=== PATIENT | female | born 1975 | race Caucasian/White ===

== ENCOUNTER 2019-02-07 16:30 | Inpatient (IN) | payer BC ==
--- NOTE | 2019-03-09 12:21 | HP ---
PROPOSED DATE OF SERVICE: She is scheduled for surgery on March 13. HISTORY OF PRESENT ILLNESS: The patient is a 44-year-old white female, G2, P2, who has been experiencing increasing pelvic prolapse symptoms. She is feeling vaginal bulging, especially aggravated by prolonged standing. She also reports having to splint the vagina at times to help remove her bowel movement with evacuation. She also has loss of urine with coughing, sneezing. She wears a pad daily due to the stress incontinent symptoms. She denies any significant urgency or frequency issues. She also has been reporting heavy bleeding with her menstrual cycles, where she will go through a Maxi Pad in 1 to 2 hours on her heavy days. PAST MEDICAL HISTORY: Only for ADD and depression. PAST SURGICAL HISTORY: Previous laser surgery on her cervix and wisdom teeth extraction. CURRENT MEDICATIONS: 1. Trintellix 20 mg tablet daily. 2. Vyvanse 30 mg tablet daily. 3. Zolpidem extended release 6.25 mg at bedtime p.r.n. insomnia. ALLERGIES: SHE HAS ALLERGY TO BENADRYL. FAMILY HISTORY: Her sister has adenocarcinoma of cervix at age 38. Mother has hyperlipidemia and heart disease. Father with type 2 diabetes. OB HISTORY: She has had 2 vaginal deliveries. Largest baby 8 pounds and 12 ounces. PHYSICAL EXAMINATION: VITAL SIGNS: Her height is 5 feet and 2 inches, weight 181, and BMI 35.3. Blood pressure 110/72, pulse 84, respirations 18, and O2 saturation on room air was 99%. HEENT: Within normal limits. CHEST: Clear to auscultation. HEART: Regular rate and rhythm. S1 and S2 heart sounds. No murmurs, rubs, or gallops. ABDOMEN: Soft, nontender, nondistended with no palpable masses. PELVIC: Vulva and vagina had no lesions. She has a cystocele and rectocele grade 2 on each with hypermobile urethra, greater than 40 degrees noted with Valsalva and loss of urine with Valsalva. Cervix had no lesions. Recent Pap smear was negative for abnormal cells and negative for HPV. Uterus is enlarged, 8 weeks' size with possible pedunculated fibroid noted on the right side. There were no other adnexal masses or tenderness appreciated. DIAGNOSTIC DATA: Transvaginal ultrasound was performed at the visit on January 18 due to the pelvic exam findings. The uterus measured 9.2 x 5.35 x 9.2 cm. There were evidence of a 3 x 3 cm posterior fibroid and 3 x 2.5 cm anterior fibroid and a right-sided 6 x 3.3 cm pedunculated fibroid noted. ASSESSMENT: This is a 44-year-old white female, G2, P2, with pelvic prolapse symptoms including a grade 2 cystocele and rectocele along with genuine stress incontinence. The patient also has menorrhagia with findings of uterine fibroids. PLAN: Plan is to proceed with robotic total laparoscopic hysterectomy with bilateral salpingectomy along with anterior and posterior repair with an Advantage Fit TVT with cystoscopy at the time of the placement of the transvaginal taping. Risks and benefits of the procedure had been discussed in detail. She is set for surgery on 03/13. Job ID: [id number]
[2019-03-09 17:14] VITALS: BMI 30.1
[2019-03-09 17:27] LABS: Hemoglobin 14.6 g/dL (12.0-16.0); Mean Corpuscular Hemoglobin 28.9 pg (27.0-31.0); Mean Corpuscular Volume 87.5 fL (78.0-98.0); Mean Platelet Volume 8.8 fL (7.4-10.4); Platelet Count 193 thou/uL (130-400); RBC Distribution Width 11.9 % (11.5-14.5); Red Blood Cell (RBC) Count 5.05 mill/uL (4.20-5.40); White Blood Cell (WBC) Count 8.6 thou/uL (4.8-10.8)
[2019-03-09 17:50] LABS: BHCG - Serum Negative (NEGATIVE); Pregs Control Background? CLEAR/WHITE (CLR/WHITE); Pregs Control Bar Appear? YES (CONTROL BAR)
[2019-03-13] MEDS ORDERED: Fentanyl 250 MCG/5 ML VIAL ONE (06:14)
[2019-03-13] MEDS ORDERED: Midazolam HCl 2 mg/2 ml Vial ONE (06:14)
[2019-03-13] MEDS ORDERED: Lidocaine 2% Jelly 5 ML TUBE ONE (06:14)
[2019-03-13] MEDS ORDERED: Gabapentin 300 MG CAP ONE (06:21)
[2019-03-13] MEDS ORDERED: CeleCOXIB 100 MG CAP ONE (06:21)
[2019-03-13] MEDS ORDERED: Famotidine/PF 20 mg/2ml Vial ONE (06:22)
[2019-03-13] MEDS ORDERED: Lidocaine 1% w/Epinephrine 1:100K 20 ML VIAL ONE ×2 (06:52→10:28)
[2019-03-13] MEDS ORDERED: Bupivacaine HCl 0.5%/Epinephrine 1:200,000/PF 30 ml Vial ONE (06:52)
[2019-03-13] MEDS ORDERED: Ondansetron PF 4 MG/2 ML Vial IVP PRN (10:58)
[2019-03-13] MEDS ORDERED: Zolpidem Tartrate 5 MG TAB PO PRN (10:58)
[2019-03-13] MEDS ORDERED: Promethazine HCl 25 MG/ML VIAL IM PRN ×2 (10:58→11:07)
[2019-03-13] MEDS ORDERED: Morphine 4 MG/ML VIAL SLOW IVP PRN (10:58)
[2019-03-13] MEDS ORDERED: traMADol HCl 50 MG TAB PO PRN ×2 (10:58)
[2019-03-13] MEDS ORDERED: Bisacodyl 10 MG SUPP PR PRN (10:58)
[2019-03-13] MEDS ORDERED: Simethicone Chewable 80 MG TAB PO PRN (10:58)
[2019-03-13] MEDS ORDERED: Promethazine HCl 25 MG/ML VIAL SLOW IVP PRN (11:07)
[2019-03-13] MEDS ORDERED: Ondansetron HCl/PF 4 MG/2 ML Vial IVP PRN (11:07)
[2019-03-13] MEDS ORDERED: HYDROmorphone 2 MG/ML VIAL SLOW IVP PRN (11:07)
[2019-03-13] MEDS ORDERED: Fentanyl 100 MCG/2 ML VIAL ONE ×2 (11:33→12:32)
[2019-03-13] MEDS ORDERED: HYDROmorphone 2 MG/ML VIAL ONE (11:47)
[2019-03-13] MEDS ORDERED: Acetaminophen 1,000 MG in Premix Bag 1 BAG IVPB SCH (12:00)
[2019-03-13] MEDS ORDERED: Ketorolac Tromethamine 30 MG/ML VIAL IVP SCH (12:00)
[2019-03-13] MEDS: Sodium Chloride 0.9% 1,000 ML IV SCH ×2 (13:46→18:14)
--- NOTE | 2019-03-13 15:52 | OP ---
DATE OF PROCEDURE: 03/13/2019 PREOPERATIVE DIAGNOSES: 1. A 44-year-old white female, G2, P2, with symptomatic grade 2 cystocele and rectocele. 2. Genuine stress incontinence. 3. Menorrhagia and uterine fibroids. POSTOPERATIVE DIAGNOSES: 1. A 44-year-old white female, G2, P2, with symptomatic grade 2 cystocele and rectocele. 2. Genuine stress incontinence. 3. Menorrhagia and uterine fibroids. 4. Evidence of mild pelvic endometriosis noted. PROCEDURES PERFORMED: 1. Robotic total laparoscopic hysterectomy and bilateral salpingectomy. 2. Anterior and posterior repair with Advantage Fit TVT with cystoscopy. PROCESS ENGINEERING TECHNICIAN SURGEON: Akila Chen PA-C ANESTHESIA: General endotracheal. ESTIMATED BLOOD LOSS: 200 mL. COMPLICATIONS: None. COUNTS: Correct x2. ANTIBIOTICS: 2 g Ancef, on-call to OR with ERAS protocol. FINDINGS: 1. Enlarged uterus approximately 10-week size with several submucosal one pedunculated uterine fibroid noted. 2. Normal appearing bilateral fallopian tubes and ovaries. 3. Scattered areas of some powder-burn lesions on the left pelvic sidewall, right pelvic sidewall consistent with mild pelvic endometriosis. 4. Clear urine present in Landeros catheter with bilateral ureteral peristalsis visualized postprocedure from a hysterectomy and also normal bladder mucosa with no evidence of transvaginal taping injury to the bladder along with bilateral ureteral efflux of urine seen on cystoscopic exam of the bladder after TVT sling placement. DISPOSITION: Recovery room, stable. DESCRIPTION OF PROCEDURE: The patient previously received informed consent in regard to surgery. She was taken back to the operating room, where she received a general endotracheal anesthetic agent without complications. She was placed in the dorsal lithotomy position with the use of Bob stirrups and prepped and draped in usual sterile fashion. Landeros catheter was placed at this time. Side-arm speculum was placed in vagina. Anterior lip of cervix was grasped with a single-tooth tenaculum. Uterus sounded to 8 cm. A size 8 cm KEITH uterine manipulator with a 4.0 cm cervical cup was placed at this time. Tenaculum and speculum were removed. Attention was then turned to the abdomen, where perspective trocar sites were infiltrated with 0.5% Marcaine with epinephrine. A 12 mm supraumbilical incision was made. Veress needle was entered into the peritoneal cavity with the patient's pressure less than 5. Abdomen was insufflated with the patient's pressure of 15 approximately 4 L of carbon dioxide gas. Veress needle was removed. A 12 mm trocar was placed. The robotic laparoscope was introduced through the trocar sleeve confirming proper entry. The patient was placed in Trendelenburg position. Additional bilateral lower quadrant 8 mm trocars were placed under laparoscopic guidance along with the right upper quadrant 11 mm social media assistant port. Robot was docked and then I proceeded to unscrubbed and then carry out the procedure from the operative console while my social media assistant remained at the bedside. The uterus was elevated from the pelvis by my social media assistant. The left fallopian tube was grasped by my social media assistant. The bipolar fenestrated cautery was utilized to coagulate the mesosalpinx and then the monopolar scissors used to excise the left fallopian tube. This was removed through the right upper quadrant social media assistant port. The left utero-ovarian ligament was then coagulated and transected. Serial coagulation and transection of the broad ligament hugging close to the uterine specimen was carried out to the left round ligament was reached. It was coagulated and transected. Anterior leaf of the broad ligament was entered in the bladder. The vesicouterine peritoneal reflection was dissected both sharply and bluntly, dissecting the bladder atraumatically past cervical vaginal margin. Uterine vessels were skeletonized on the left side and they were coagulated in the internal cervical os region. This was carried down in likewise fashion on the right side of the uterus again with the right fallopian tube being excised and removed through the right upper quadrant social media assistant port. Right utero-ovarian ligament was coagulated and transected. Serial coagulation of broad ligament was carried down with coagulation transection to the round ligament. This was also coagulated and transected. Again, the anterior leaf of the broad ligament was entered. The vesicouterine peritoneum was incised, dissecting the bladder atraumatically past the cervical vaginal margin. The bladder was distended and confirmed to be past the plane of anterior colpotomy over the cervix. It was also watertight. The uterine vessels again were skeletonized and coagulated in the internal cervical os region. The anterior colpotomy was then made over the cervical cup starting from 12 to 3 and 12 to 9 o'clock position. This was completed from 6 to 9 and 6 to 3 o'clock. The specimen was then delivered in the vaginal vault. The vaginal cuff was inspected and coagulated any remaining oozing areas with bipolar fenestrated cautery. The pedicle sites were inspected and hemostatic after irrigation. The bilateral ureteral peristalsis was visualized. Clear urine was draining from the Landeros catheter. Once this was accomplished, we then undocked the robot and the trocars sleeves were removed. A deep stitch of 0 Vicryl was placed in the umbilical fascial defects for approximation together, trocar sites were closed with 4-0 Monocryl with Dermabond. Attention was then turned to the vaginal portion of the procedure. The patient's legs were brought back in a more of a position for operative vaginal surgery. A weighted speculum was placed in the vagina along with a curved [place]. We then grasped the vaginal cuff posteriorly with the Allis clamp and a stay suture was placed at 6 o'clock position of the posterior vaginal cuff and this were tied with a stay suture. The bilateral angles were also then grasped and two stay sutures were also placed with 0 Vicryl and tagged. I then marked the position for the Advantage Fit TVT placement. The mid urethra was marked just above the symphysis pubis and then 2 cm lateral and the midportion was marked on the right and left side just above the symphysis bone with the marker. The midportion of the urethra was located. This was infiltrated with 1% lidocaine with epinephrine. Two Allis clamps were placed approximately 2 cm apart and 1.5 cm midline incision in the vaginal mucosa and the mid urethra was made with a scalpel. The edges were grasped with Allis clamps and then I dissected a submucosally towards the direction of the junction of the inferior pubic ramus and the symphysis pubis breaking into the space of Retzius on both right and left sides. The legs were then brought down in-line with the axilla bilaterally. A 60 mL of sterile water were then infiltrated behind the symphysis pubis for hydrodissection. The guidewire catheter was then placed in the bladder deviating the bladder away from the patient's left side. The Advantage Fit trocar was assembled with the TVT tape in position. I then placed this through the previously dissected submucosal vaginal tunnel on the patient's left side, hitting just behind the symphysis pubis in the previous marked site. The trocar was punctured through this. The end of the TVT tape was grasped by my social media assistant with a Tian clamp and then the trocar was removed back out. The other end of the sleeve of the TVT tape was then positioned again on the trocar and we made sure that the tape was in the right position. There was no twisting of the tape noted. This was then placed and then the right-sided submucosal vaginal dissected tunnel again heading through this area heading to up towards the space of Retzius behind the pubis symphysis bone approximately 2 cm lateral to the mid urethra previously marked site. This punctured through the skin. The end of the tape was grasped by my social media assistant with a Tian clamp and I removed the trocar device. The bladder had been deviated to the opposite direction with the Landeros guide. We then removed the Landeros guide and a 70 degree cystoscope was assembled. The bladder was distended with saline. I inspected the urethra and the bladder in its entirety. There was no evidence of any mesh placement through the mucosa. Bilateral ureteral orifices were also visualized and efflux of urine was confirmed visually. I removed the cystoscope and then reattached the Landeros catheter. We then pulled the TVT mesh tape snug up to the mid urethra with a Del Rosario suture being the guide for tension. Then once this was is set, they were trimmed at the base of the skin bilaterally. We then removed the Del Rosario scissors and the mucosa over the mid urethra was closed with 2-0 Vicryl suture. Hemostasis was confirmed. We then placed the legs back up in a more of an operative vaginal position. The TVT taping actually reduced quite a bit of the cystocele. There was some residual area of cystocele noted in the midline portion of the anterior vagina was dissected and the edges were grasped with Allis clamps. The cystocele was dissected sharply and bluntly and a pursestring stitch of 2-0 Vicryl was placed reducing the remainder of the cystocele. The anterior vaginal mucosa was closed over this with interrupted [id number] stitches for hemostasis. The vaginal cuff was then closed with 0 Vicryl suture starting from the angle of the patient's right side and the left side and then incorporating the stitch closing the vaginal cuff horizontally and somewhat vertically securing the vaginal cuff with hemostasis. We then proceeded to repair the rectocele. Two Allis clamps were placed at both the 4 and 8 o'clock positions. The posterior vaginal mucosa was infiltrated with 1% lidocaine with epinephrine. Then, incision in the midline posterior vaginal mucosa was made up to the cuff line. Top of the apex of the cuff incision was tagged with a 2-0 Vicryl suture and held in place. The rectum was dissected sharply and bluntly reducing the rectocele hernia in its entirety. The edges of the vaginal mucosa had been grasped with Allis clamps for counter traction and visualization. A 2-0 Vicryl suture was then utilized to close the endopelvic fascia and plicated in the midline, reducing the rectocele defect starting most proximally, then working caudally towards the vaginal introitus. Once the rectocele defect had been repaired, the posterior vaginal mucosa was closed incorporating some of the endopelvic fascia ridding the space with 2-0 and #1 Vicryl suture. This was accomplished, rectal exam was performed. No evidence of suture placement in the rectum was noted on digital rectal exam. A moistened Kerlix was then placed in the vaginal vault for hemostasis and pressure. The patient was then awakened from anesthesia and transferred to recovery room in stable condition. Job ID: [id number]
[2019-03-13] MEDS ORDERED: PROPOFOL 200 MG/20 ML VIAL ONE (16:02)
[2019-03-13] MEDS ORDERED: ePHEDrine 50 MG/ML VIAL ONE (16:02)
[2019-03-13] MEDS ORDERED: Rocuronium Bromide 10 MG/ML (10ML VIAL) ONE (16:02)
[2019-03-13] MEDS ORDERED: PHENYLEPHRINE-NS 100 MCG/ML 10 ML SYRINGE ONE (16:02)
[2019-03-13] MEDS ORDERED: Lidocaine 1% PF 5 ML VIAL ONE (16:02)
[2019-03-13] MEDS ORDERED: Ondansetron PF 4 MG/2 ML Vial ONE (16:02)
[2019-03-13] MEDS ORDERED: Dexamethasone 20 MG/5 ML VIAL ONE (16:02)
[2019-03-13] MEDS ORDERED: Glycopyrrolate 0.2 MG/ML 5 ML SYRINGE ONE (16:02)
[2019-03-13] MEDS ORDERED: HYDROcodone/Acetaminophen 5/325 mg Tablet PO PRN (18:50)
[2019-03-13] MEDS: Acetaminophen 1,000 MG in Premix Bag 1 BAG IVPB SCH (20:11)
[2019-03-13] MEDS: Ketorolac Tromethamine 30 MG/ML VIAL IVP SCH (20:12)
[2019-03-13] MEDS ORDERED: TRINTELLIX 20 MG PO SCH (21:00)
[2019-03-13] MEDS ORDERED: ZOLPIDEM TARTRATE 6.25 MG PO SCH (21:00)
[2019-03-14] MEDS: Ketorolac Tromethamine 30 MG/ML VIAL IVP SCH ×3 (02:15→13:37)
[2019-03-14] MEDS: Acetaminophen 1,000 MG in Premix Bag 1 BAG IVPB SCH ×3 (02:39→14:30)
[2019-03-14 05:23] LABS: Hemoglobin 11.4 g/dL (12.0-16.0); Mean Corpuscular HGB CONC 33.2 g/dL (32.0-36.0); Mean Corpuscular Hemoglobin 29.6 pg (27.0-31.0); Mean Corpuscular Volume 89.1 fL (78.0-98.0); Mean Platelet Volume 8.5 fL (7.4-10.4); Platelet Count 123 thou/uL (130-400); RBC Distribution Width 12.1 % (11.5-14.5); Red Blood Cell (RBC) Count 3.85 mill/uL (4.20-5.40); White Blood Cell (WBC) Count 9.4 thou/uL (4.8-10.8)
[2019-03-14] MEDS ORDERED: Ibuprofen 800 MG TAB PO SCH ×2 (06:00→14:00)
[2019-03-14] MEDS: Sodium Chloride 0.9% 1,000 ML IV SCH (11:00)
--- NOTE | 2019-03-14 12:20 | PDOC.EVN ---
Event Note - Event Note Event Note: Tolerating diet...Voiding trials. Good pain control. O:AFVSS. HCT 34.3.. 350 ml void/pvr 267 ml 200 ml/pvr 200 ml abdomen soft/expected post op tenderness. A/P Post op day 1 -robotic tlh/with advantage fit tvt and a&P. Voiding trials continue. Routine care....
[2019-03-14 18:04] VITALS: BP 106/54; TEMP 98.7
[2019-03-14] MEDS ORDERED: Docusate Calcium (SURFAK) 240 MG CAP PO SCH (21:00)
== END 2019-03-14 18:45 | disposition home or self-care (01) | DRG 743 ==
LOC: SURG A 03-13 06:00 → 3SE 03-13 13:36 → EDSTATUS 03-13 16:30
PROVIDERS: ADMIT Obstetrics & Gynecology; ATTEND Obstetrics & Gynecology
PROC: 0UT94ZZ Resection of Uterus, Percutaneous Endoscopic Approach (ICD-10-PCS; principal; 2019-03-13)
PROC: 0UT24ZZ Resection of Bilateral Ovaries, Percutaneous Endoscopic Approach (ICD-10-PCS; 2019-03-13)
PROC: 0UT74ZZ Resection of Bilateral Fallopian Tubes, Percutaneous Endoscopic Approach (ICD-10-PCS; 2019-03-13)
PROC: 0JQC0ZZ Repair Pelvic Region Subcutaneous Tissue and Fascia, Open Approach (ICD-10-PCS; 2019-03-13)
PROC: 8E0W4CZ Robotic Assisted Procedure of Trunk Region, Percutaneous Endoscopic Approach (ICD-10-PCS; 2019-03-13)
PROC: 0TJB8ZZ Inspection of Bladder, Via Natural or Artificial Opening Endoscopic (ICD-10-PCS; 2019-03-13)
DX: N81.4 Uterovaginal prolapse, unspecified (principal); N81.6 Rectocele; N92.0 Excessive and frequent menstruation with regular cycle; N39.3 Stress incontinence (female) (male); D25.9 Leiomyoma of uterus, unspecified; F98.8 Other specified behavioral and emotional disorders with onset usually occurring in childhood and adolescence; F32.9 Major depressive disorder, single episode, unspecified; Z88.8 Allergy status to other drugs, medicaments and biological substances
CPT/HCPCS: 36415; 84703; 85027; 86850; 86900; 86901; 88307; C1781; J0131; J0670; J0690; J1100; J1170; J1885; J2001; J2250; J2270; J2405; J2704; J3010; J3490; S0028

== ENCOUNTER 2019-03-09 13:19 | Outpatient (CLI) | payer BC ==
[2019-03-09 17:27] LABS: Hemoglobin 14.6 g/dL (12.0-16.0); Mean Corpuscular Hemoglobin 28.9 pg (27.0-31.0); Mean Corpuscular Volume 87.5 fL (78.0-98.0); Mean Platelet Volume 8.8 fL (7.4-10.4); Platelet Count 193 thou/uL (130-400); RBC Distribution Width 11.9 % (11.5-14.5); Red Blood Cell (RBC) Count 5.05 mill/uL (4.20-5.40); White Blood Cell (WBC) Count 8.6 thou/uL (4.8-10.8)
[2019-03-09 17:50] LABS: BHCG - Serum Negative (NEGATIVE); Pregs Control Background? CLEAR/WHITE (CLR/WHITE); Pregs Control Bar Appear? YES (CONTROL BAR)
== END 2019-03-09 13:20 | disposition home or self-care (01) ==
LOC: LABBT 13:19
PROVIDERS: ATTEND Obstetrics & Gynecology
DX: Z01.812 Encounter for preprocedural laboratory examination (principal); N81.4 Uterovaginal prolapse, unspecified; N92.0 Excessive and frequent menstruation with regular cycle; N39.3 Stress incontinence (female) (male)
CPT/HCPCS: 84703; 85027; 86850; 86900; 86901

== ENCOUNTER 2019-04-11 16:50 | Emergency (ER) | payer BC ==
[2019-04-11 17:21] LABS: #Eosinphils 0.2 thou/uL (0.0-0.7); #Lymphocytes 2.4 thou/uL (1.20-3.40); #Monocytes 0.6 thou/uL (0.11-0.59); #Neutrophils 4.1 thou/uL (1.40-6.50); %Basophils 0.6 % (0.0-1.0); %Eosinophils 2.7 % (0.0-10.0); %Lymphocytes 33.4 % (21.0-51.0); %Monocytes 7.8 % (0.0-10.0); %Neutrophils 55.5 % (42.0-75.0); Hemoglobin 14.1 g/dL (12.0-16.0); Mean Corpuscular HGB CONC 34.6 g/dL (32.0-36.0); Mean Corpuscular Hemoglobin 29.8 pg (27.0-31.0); Mean Platelet Volume 9.1 fL (7.4-10.4); Platelet Count 180 thou/uL (130-400); RBC Distribution Width 11.9 % (11.5-14.5); Red Blood Cell (RBC) Count 4.75 mill/uL (4.20-5.40); White Blood Cell (WBC) Count 7.3 thou/uL (4.8-10.8)
[2019-04-11 17:29] LABS: Bilirubin Moderate (Negative); Blood, Urine Large (Negative); Glucose, Urine (Dipstick) Negative (Negative); Leukocyte Large (Negative); Nitrite Negative (Negative); Protein, Urine (Dipstick) 100 mg/dL (Neg-Trace)
[2019-04-11 17:41] LABS: Clarity Cloudy (Clear)
[2019-04-11 17:49] LABS: RBC/HPF Greater than 50 HPF (0-3)
[2019-04-11 17:50] LABS: ALT (SGPT) 15 U/L (8-55); AST (SGOT) 17 U/L (5-34); Albumin 4.5 g/dL (3.5-5.0); Alkaline Phosphatase 81 U/L (40-150); Anion Gap 13 mmol/L (10-20); BUN (Urea Nitrogen) 10 mg/dL (7.0-18.7); Bilirubin, Total 0.3 mg/dL (0.2-1.2); Calc. Creatinine Clearance 0 mL/min (70-130); Calcium 9.3 mg/dL (7.8-10.44); Carbon Dioxide 27 mmol/L (22-29); Chloride 104 mmol/L (98-107); Estimated GFR-MDRD Greater than 90; Globulin 2.7 g/dL (2.4-3.5); Glucose 103 mg/dL (70-105); Potassium 3.9 mmol/L (3.5-5.1); Protein, Total 7.2 g/dL (6.0-8.3); Sodium 140 mmol/L (136-145)
[2019-04-11 17:50] LABS: Bacteria/HPF Rare-Few HPF (None Seen); WBC/HPF 21-50 HPF (0-3)
[2019-04-11] MEDS ORDERED: Ketorolac Tromethamine 30 MG/ML VIAL ONE (20:32)
--- NOTE | 2019-04-11 21:24 | CT ---
CT Abdomen Pelvis W Con HISTORY: Patient is status post hysterectomy approximately 4 weeks ago. Vaginal bleeding. COMPARISON: None. FINDINGS: The lung bases are clear. The liver is normal in appearance. Spleen is mildly prominent but within normal limits of size. The p ancreas and gallbladder regions appear unremarkable. The gallbladder somewhat contracted. Right and left adrenal glands and right and left kidneys are normal in size. There is no significant periaortic or mesenteric lymphadenopathy. CT of pelvis performed with contrast enhancement: The appendix is normal there is a septated cystic-a ppearing lesion involving the right adnexa, it measures 3.5 cm. There is no signs of any pelvic hematoma, fluid or abscess collection. There is some central air density in the region of the cervix felt to be postoperative in nature. IMPRESSION: 1. No signs of any pelvic hematoma or abscess collection. 2. Complex cystic lesion which appears to involve the right ovary. It measures 3.5 cm in size.
== END 2019-04-11 22:10 | disposition home or self-care (01) ==
LOC: ERS 16:50
DX: N93.9 Abnormal uterine and vaginal bleeding, unspecified (principal); N83.201 Unspecified ovarian cyst, right side; F41.9 Anxiety disorder, unspecified; G47.00 Insomnia, unspecified
CPT/HCPCS: 36415; 74177; 80053; 81003; 81015; 85025; 86850; 86900; 86901; 96374; J1885

== ENCOUNTER 2019-04-12 09:27 | Observation (INO) | payer BC ==
[~2019-04-12 09:27] MED LIST: Bupivacaine HCl 0.5%/Epinephrine 1:200,000/PF 30 ml Vial ONE
[2019-04-12 09:43] LABS: #Eosinphils 0.2 thou/uL (0.0-0.7); #Lymphocytes 1.8 thou/uL (1.20-3.40); #Monocytes 0.4 thou/uL (0.11-0.59); #Neutrophils 2.6 thou/uL (1.40-6.50); %Basophils 0.8 % (0.0-1.0); %Eosinophils 3.6 % (0.0-10.0); %Lymphocytes 36.1 % (21.0-51.0); %Monocytes 7.5 % (0.0-10.0); Hemoglobin 13.3 g/dL (12.0-16.0); Mean Corpuscular Hemoglobin 30.6 pg (27.0-31.0); Mean Corpuscular Volume 87.5 fL (78.0-98.0); Mean Platelet Volume 9.2 fL (7.4-10.4); Platelet Count 153 thou/uL (130-400); RBC Distribution Width 12.1 % (11.5-14.5); Red Blood Cell (RBC) Count 4.33 mill/uL (4.20-5.40)
[2019-04-12] MEDS ORDERED: Midazolam HCl 2 mg/2 ml Vial ONE (09:44)
[2019-04-12] MEDS ORDERED: Fentanyl 100 MCG/2 ML VIAL ONE ×2 (09:44→11:07)
[2019-04-12 09:48] LABS: PTT 27.8 SEC (22.9-36.1); Prothrombin Time 12.9 SEC (12.0-14.7)
[2019-04-12] MEDS ORDERED: ceFAZolin Sodium (SDC) 2 GM/100 ML BAG ONE (09:50)
[2019-04-12] MEDS ORDERED: PROPOFOL 200 MG/20 ML VIAL ONE (10:00)
[2019-04-12] MEDS ORDERED: Lidocaine 1% PF 5 ML VIAL ONE (10:00)
[2019-04-12] MEDS ORDERED: Dexamethasone 20 MG/5 ML VIAL ONE (10:00)
[2019-04-12] MEDS ORDERED: Succinylcholine Chloride 20 MG/ML 10 ml SYRINGE FS ONE (10:00)
[2019-04-12] MEDS ORDERED: Rocuronium Bromide 10 MG/ML (10ML VIAL) ONE (10:00)
[2019-04-12] MEDS ORDERED: Ondansetron PF 4 MG/2 ML Vial ONE (10:00)
[2019-04-12] MEDS ORDERED: Promethazine HCl 25 MG/ML VIAL SLOW IVP PRN (11:06)
[2019-04-12] MEDS ORDERED: Ondansetron HCl/PF 4 MG/2 ML Vial IVP PRN (11:06)
[2019-04-12] MEDS ORDERED: Promethazine HCl 25 MG/ML VIAL IM PRN (11:06)
[2019-04-12] MEDS ORDERED: traMADol HCl 50 MG TAB PO PRN (11:10)
[2019-04-12] MEDS ORDERED: Lactated Ringer's 1,000 ML IV SCH (11:15)
[2019-04-12 13:13] LABS: Hemoglobin 11.6 g/dL (12.0-16.0); Mean Corpuscular HGB CONC 33.8 g/dL (32.0-36.0); Mean Corpuscular Hemoglobin 29.5 pg (27.0-31.0); Mean Corpuscular Volume 87.4 fL (78.0-98.0); Mean Platelet Volume 8.8 fL (7.4-10.4); Platelet Count 127 thou/uL (130-400); RBC Distribution Width 11.9 % (11.5-14.5); Red Blood Cell (RBC) Count 3.92 mill/uL (4.20-5.40); White Blood Cell (WBC) Count 6.3 thou/uL (4.8-10.8)
--- NOTE | 2019-04-12 14:21 | OP ---
DATE OF PROCEDURE: 04/12/2019 POSTOPERATIVE DIAGNOSES: 1. A 44-year-old white female, status post four weeks of robotic total laparoscopic hysterectomy and anterior and posterior repair with Advantage Fit TVT. 2. Late postoperative vaginal cuff hemorrhage bleeding. POSTOPERATIVE DIAGNOSES: 1. A 44-year-old white female, status post four weeks of robotic total laparoscopic hysterectomy and anterior and posterior repair with Advantage Fit TVT. 2. Late postoperative vaginal cuff hemorrhage bleeding. PROCEDURES PERFORMED: Exam under anesthesia with repair and oversewing of vaginal cuff bleeders. PST SUPERVISOR SURGEON: Kandy Lewis MD ANESTHESIA: General endotracheal. ESTIMATED BLOOD LOSS: During this procedure was less than 25 mL. ANTIBIOTICS: 2 g Ancef on-call to OR. FINDINGS: On exam under anesthesia and the speculum, the large Kerlix roll was removed. Essentially, hemostasis had been obtained with the pressure. On exam though in the vaginal cuff there was identified small appeared to be arterial bleeder in the vaginal cuff left angle, which has been secured with hemostasis with suturing. The cuff was otherwise intact. All the other suture lines were intact. There was a generalized ooze of the upper vaginal cuff noted. This was made hemostatic at completion of surgery. DESCRIPTION OF OPERATIVE PROCEDURE: The patient was taken back to the operating room. She was given a general anesthetic agent. She was placed in dorsal lithotomy position. Landeros catheter was placed. She was prepped and draped in usual sterile fashion. A weighted speculum was placed in vagina along with a [place] and a right angle retractor. The vaginal cuff was well suspended and she was noted to be with general oozing of the upper vaginal cuff. The rest of the cuff lines, anterior and posteriorly appeared intact, they were not bleeding. I grabbed the cuff edge with two long Allis clamps and then put a stay suture at the most 3 o'clock position, then I kind of ran up the cuff line intermittently with the long Allis clamps suturing, and oversewing the oozy nature of the vaginal cuff region. There appeared to be a small arterial bleeder at the left vaginal angle, which was secured with a [id number] stitch suture in direct visualization. Then, the long tag of this suture remained. The other suture tags were cut. We relaxed on all the suture line. We observed for approximately 2 to 3 minutes and there was no further bleeding noted. I then asked for FloSeal and then, we re-examined the cuff closure and it remained hemostatic. I placed FloSeal over this area for added hemostasis and then, we packed the area with a moistened Kerlix packing. The patient was awakened from the anesthesia and transferred to the floor. We will observe at least 6 hours for any further bleeding. We will remove packing after 4 to 6 hours. If no bleeding recur, we will do serial hematocrits on the patient to see if she needs any blood products. At this time, vital signs are stable and her preop hemoglobin was 13. Job ID: [id number]
--- NOTE | 2019-04-12 14:30 | HP ---
HISTORY OF PRESENT ILLNESS: Ms. Ahn is a 44-year-old white female, G2, P2, who is approximately 4 weeks post robotic hysterectomy, bilateral salpingectomy with anterior and posterior repair with an Advantage Fit TVT procedure. She had been doing well until having some onset of vaginal bleeding yesterday evening, which was moderate. She denied any excessive activity or intercourse or any other contributing factors. No fever or abdominal pain. She was evaluated in the emergency room at [facility] by the ER physician, had a CAT scan that showed no vaginal cuff hematoma or pelvic hematoma and cuff was intact with no other abnormalities noted. Her vital signs were stable and hemoglobin was stable at 13. She had apparently minimal bleeding when she was discharged home. She was scheduled for followup with me this morning. The patient reports onset of very heavy bleeding started about 3 a.m. She called my office at about 8 o'clock this morning and was told to my phone nurse about the heavy bleeding. She was immediately brought to my office. I assessed the vaginal bleeding and she had approximately about 250 mL of clot in the vaginal vault. I evacuated this with a speculum and ring forceps. I could see an area of what appeared to be brisk bright bleeding in the vaginal cuff, but I could not isolate the exact position of it due to the absence of suction and visualization. I quickly took a moistened Kerlix roll and intact her vagina, which did improve the hemostasis. She was then discussed for an evaluation in the operating room with exam under anesthesia and control of the vaginal bleeding. PAST MEDICAL HISTORY: Only for ADD and depression. PAST SURGICAL HISTORY: As above and prior laser surgery on her cervix and wisdom teeth. CURRENT MEDICATIONS: 1. Trintellix 20 mg daily. 2. Vyvanse 30 mg daily. 3. Zolpidem 6.25 at bedtime as needed for sleep. ALLERGIES: SHE HAS ALLERGY TO BENADRYL. FAMILY HISTORY: Adenocarcinoma of cervix at age 38 in her sister. Mother has hyperlipidemia and heart disease. Father with type 2 diabetes. PHYSICAL EXAMINATION: GENERAL: The patient is lying down. She is alert and oriented. She is having enough concern for the bleeding. VITAL SIGNS: Her pulse was 100 and blood pressure was 120/76. HEENT: Within normal limits. CHEST: Clear to auscultation. HEART: Regular rate and rhythm. S1 and S2 heart sounds. No murmurs, rubs, or gallops. ABDOMEN: Soft, nontender, and nondistended. : She has vaginal cuff active bleeding noted. Appears to be a bleeder, a small pumper, arterial bleeder on the vaginal cuff with intact suture line. ASSESSMENT: This is a 44-year-old, approximately 4 weeks status post robotic hysterectomy with anterior and posterior repair and an Advantage Fit TVT procedure, now with active vaginal cuff bleeder. PLAN: Plan is to take the patient emergently over to Day Stay and have her prepared to go back to the operating room for exam under anesthesia and hemostasis control of vaginal cuff bleeder. She will be typed and screen 2 units. CBC on arrival. OR staff along with Preop Day Stay has been notified on her arrival. Job ID: [id number]
[2019-04-12 17:30] LABS: Hemoglobin 12.7 g/dL (12.0-16.0); Mean Corpuscular HGB CONC 35.5 g/dL (32.0-36.0); Mean Corpuscular Hemoglobin 31.2 pg (27.0-31.0); Mean Platelet Volume 9.3 fL (7.4-10.4); Platelet Count 187 thou/uL (130-400); Red Blood Cell (RBC) Count 4.06 mill/uL (4.20-5.40); White Blood Cell (WBC) Count 10.5 thou/uL (4.8-10.8)
[2019-04-12] MEDS: traMADol HCl 50 MG TAB PO PRN ×2 (18:18→21:52)
[2019-04-13 08:12] VITALS: BP 93/55; TEMP 98.3
--- NOTE | 2019-04-13 08:38 | OP ---
DATE OF PROCEDURE: 04/12/2019 ADDENDUM: I was present and scrubbed to assist the exam under anesthesia with closure of bleeding vaginal cuff with Dr. Savanna Taveras. Please see her note for full details. Job ID: [id number]
--- NOTE | 2019-04-13 21:56 | DIS ---
DATE OF ADMISSION: 04/12/2019 DATE OF DISCHARGE: 04/13/2019 DIAGNOSIS: Post hysterectomy vaginal cuff bleeding. PROCEDURE PERFORMED: Under anesthesia with closure of active vaginal cuff bleeder. SUMMARY OF HOSPITAL COURSE: Ms. Ahn is a 44-year-old white female who was 4-week status post robotic TLH, anterior and posterior repair with Advantage Fit TVT. She is doing well and she has had onset of heavy bleeding, though with significant amount. She presented to my office and there was active bleeding in the vaginal cuff on the left side visualized. We were unable to get a good visualization and relaxation in the office and therefore, she received Kerlix packing with improvement in the bleeding. She was taken back in an emergent manner to the operating room. She had an exam under anesthesia, which revealed the bleeder side and the vaginal cuff was oversewed and the bleeder head was suture ligated with hemostasis. She had serial hemoglobin values checked while in the hospital and they were 11.3 and 12.7 at the time of discharge. Vaginal packing was removed with no further bleeding noted approximately 4 hours along with a Landeros catheter. She did have a vasovagal episode and was evaluated by the [facility] team, but it appeared to be all vasovagal with stable hemoglobin and vitals in which all of the syncopal issues resolved. At the time of discharge, she was ambulating and voiding without difficulty and tolerating regular diet. She was discharged on tramadol 50 q.6 hours p.r.n. pain. She will have a followup in approximately 2 weeks. She was instructed to call immediately if she has recurrence of any heavy bleeding. Job ID: [id number]
--- NOTE | 2019-04-18 22:37 | EKG ---
Test Reason : CODE GREEN Blood Pressure : / mmHG Vent. Rate : 059 BPM Atrial Rate : 059 BPM P-R Int : 146 ms QRS Dur : 116 ms QT Int : 428 ms P-R-T Axes : 051 066 051 degrees QTc Int : 423 ms Sinus bradycardia Incomplete right bundle branch block Borderline ECG When compared with ECG of 09-FEB-1997 12:58, QRS duration has increased T wave inversion now evident in Anterior leads Confirmed by Tod STONE ([id number]) on 04/18/2019 10:36:45 PM Referred By: Confirmed By:Tod STONE
== END 2019-04-13 08:45 | disposition home or self-care (01) ==
LOC: SDC 09:27 → 3SE 11:52
PROVIDERS: ADMIT Obstetrics & Gynecology; ATTEND Obstetrics & Gynecology
PROC: 0UQGXZZ Repair Vagina, External Approach (ICD-10-PCS; principal; 2019-04-13)
DX: N99.820 Postprocedural hemorrhage of a genitourinary system organ or structure following a genitourinary system procedure (principal); F32.9 Major depressive disorder, single episode, unspecified; F98.8 Other specified behavioral and emotional disorders with onset usually occurring in childhood and adolescence; Z88.8 Allergy status to other drugs, medicaments and biological substances
CPT/HCPCS: 36415; 36416; 85025; 85610; 85730; 93005; 93010; G0378; J0670; J0690; J1100; J2001; J2250; J2405; J2704; J3010

== ENCOUNTER 2019-04-17 19:32 | Observation (INO) | payer BC ==
[~2019-04-17 19:32] MED LIST changes: -Bupivacaine HCl 0.5%/Epinephrine 1:200,000/PF 30 ml Vial ONE; +ISOVUE-370 76%-LOCM 1 ML ONE
[2019-04-17] MEDS ORDERED: Tranexamic Acid 1,000 MG/10 ML VIAL ONE (19:56)
--- NOTE | 2019-04-17 20:48 | HP ---
TIME OF SERVICE: 2020 hours. PRESENTING COMPLAINT: Vaginal bleeding post hysterectomy. HISTORY OF PRESENT ILLNESS: Ms. Ahn is a 44-year-old, G2, P2, who had a TLH, BSO, anterior and posterior repair, and Advantage Fit mid urethral sling approximately 5 weeks ago. She had an uncomplicated postoperative course until approximately 1 week ago when she had some vaginal bleeding. This required admission by Dr. Taveras and suture ligation of area of bleeding at the left vaginal cuff. FloSeal was placed at the time as well too. The patient reports that she had no bleeding until last night when she had a small amount. She presented to Dr. Taveras's office this morning and was inspected and noted to be dry, Monsel was applied and the patient had no bleeding until approximately an hour ago when she started feeling fluid running in her vagina, which felt like urine, but it was actually blood and she went through 3 pads in approximately 10 minutes. She presents to the emergency room now for followup. PAST MEDICAL HISTORY: ADD and depression. PAST SURGICAL HISTORY: As noted above plus hysterectomy, laser surgery on the cervix and wisdom tooth. MEDICATIONS: Include; 1. Trintellix. 2. Vyvanse. 3. Zolpidem. ALLERGIES: BENADRYL. FAMILY HISTORY: Significant for adenocarcinoma of the cervix in her sister, mom with hyperlipidemia and heart disease. PHYSICAL EXAMINATION: GENERAL: White female, in no acute distress. VITAL SIGNS: Pulse 89, blood pressure 110/72, afebrile, respirations 20. HEENT: Within normal limits. LUNGS: Clear to auscultation bilaterally. HEART: Regular rate and rhythm. ABDOMEN: Soft and nondistended. : Vulva, the patient had significant clot on her vulva. Speculum was introduced and approximately 25-30 mL of clot was in the vagina including area that appeared to be the Monsel's or FloSeal. This was pulled out with a ring forceps. The cuff was well visualized using rectal sponges. The suture placed by Dr. Taveras was well visualized. No significant active bleeding was noted. The patient was noted to have eaten approximately 1 hour ago. Decision was made to apply TXA, 10 mL of TXA was placed on a 4 x 4 sponge. This was placed into the apex of the vagina against the cuff and then backed up with a dry Kerlix sponge, which was cut off at the level of the introitus. IMPRESSION: Post hysterectomy vaginal bleeding, uncertain etiology. PLAN: Placement into observation. Check CBCs. Serial . Repeat CBC in the a.m. Notify Dr. Taveras of patient's admission. The patient will be left n.p.o. and will consent for exam under anesthesia and repair of vaginal cuff. Job ID: [id number]
[2019-04-17] MEDS ORDERED: Famotidine/PF 20 mg/2ml Vial SLOW IVP SCH (21:00)
--- NOTE | 2019-04-17 21:13 | CT ---
EXAM: CT Pelvis W Con DATE: 04/17/2019 8:44 PM INDICATION: Vaginal bleeding status post hysterectomy COMPARISON: CT the abdomen and pelvis dated April 11, 2019 FINDING: Complex cystic lesion involving the right adnexa has intervally enlarged measuring 5.3 cm. Gas is present in the region of the vaginal vault. Small locule of gas is seen within the bladder. No free fluid is evident. Unopacified large and small bowel are unremarkable appearing. No acute osseous abnormality is evident. IMPRESSION: No free fluid or large drainable collection evident within the pelvis. There is been interval enlargement of complex cystic abnormality involving the right adnexa, now veronique uring 5.3 cm. Follow-up pelvic ultrasound examination in 6-8 weeks is recommended to document resolution. Small loculated gas within the bladder may reflect recent instrumentation. Recommend correlation. Gaseous distention of the vagina may be related to soft tissue dressings.
[2019-04-17] MEDS ORDERED: Sodium Chloride 0.9% 1,000 ML IV SCH (21:38)
[2019-04-17] MEDS ORDERED: Ondansetron ODT 4 MG TAB PO PRN (21:38)
[2019-04-17] MEDS ORDERED: Zolpidem Tartrate 5 MG TAB PO PRN (21:38)
[2019-04-17 21:52] LABS: #Eosinphils 0.2 thou/uL (0.0-0.7); #Lymphocytes 2.5 thou/uL (1.20-3.40); #Monocytes 0.8 thou/uL (0.11-0.59); #Neutrophils 3.3 thou/uL (1.40-6.50); %Basophils 0.4 % (0.0-1.0); %Eosinophils 3.1 % (0.0-10.0); %Lymphocytes 36.7 % (21.0-51.0); %Monocytes 11.3 % (0.0-10.0); %Neutrophils 48.4 % (42.0-75.0); Hemoglobin 11.9 g/dL (12.0-16.0); Mean Corpuscular HGB CONC 34.6 g/dL (32.0-36.0); Mean Corpuscular Hemoglobin 29.7 pg (27.0-31.0); Mean Corpuscular Volume 85.7 fL (78.0-98.0); Mean Platelet Volume 9.6 fL (7.4-10.4); Platelet Count 157 thou/uL (130-400); RBC Distribution Width 11.9 % (11.5-14.5); Red Blood Cell (RBC) Count 4.02 mill/uL (4.20-5.40); White Blood Cell (WBC) Count 6.8 thou/uL (4.8-10.8)
[2019-04-18 06:19] LABS: #Eosinphils 0.2 thou/uL (0.0-0.7); #Lymphocytes 2.3 thou/uL (1.20-3.40); #Monocytes 0.8 thou/uL (0.11-0.59); #Neutrophils 3.9 thou/uL (1.40-6.50); %Basophils 0.4 % (0.0-1.0); %Eosinophils 2.9 % (0.0-10.0); %Lymphocytes 31.4 % (21.0-51.0); %Monocytes 11.3 % (0.0-10.0); Hemoglobin 10.7 g/dL (12.0-16.0); Mean Corpuscular HGB CONC 34.7 g/dL (32.0-36.0); Mean Corpuscular Hemoglobin 30.3 pg (27.0-31.0); Mean Corpuscular Volume 87.4 fL (78.0-98.0); Mean Platelet Volume 8.9 fL (7.4-10.4); Platelet Count 154 thou/uL (130-400); RBC Distribution Width 11.8 % (11.5-14.5); Red Blood Cell (RBC) Count 3.52 mill/uL (4.20-5.40); White Blood Cell (WBC) Count 7.2 thou/uL (4.8-10.8)
--- NOTE | 2019-04-18 07:35 | PDOC.EVN ---
Event Note - Event Note Event Note: NO heavy bleeding overnight. Mild [id number] from vaginal packing. No orthostatic symptoms. O: T97.9 P 79 BP 102/61 R 16. U/o 1025 ml. QBL overnight 28 ml. HCT 34 to 30.. Perineum_packing in place. Light stained maxi pad A/P:Vaginal bleeding overnight minimal . Hemodynamically stable. Plan to d/c and have patient drive by private car to Dr Roxanna Zazueta-[facility] -in the [facility]. Will have her consult on surgical rec's and care for recurrent late vaginal cuff bleed....To continue NPO staus.
[2019-04-18 08:17] VITALS: BP 110/59; TEMP 98.2
--- NOTE | 2019-04-18 08:39 | DIS ---
DATE OF ADMISSION: 04/17/2019 DATE OF DISCHARGE: 04/18/2019 DATE OF OBSERVATION: 04/17/2019 through 04/18/2019. DIAGNOSIS: Recurrent vaginal cuff bleeding 5 weeks postop. SUMMARY HOSPITAL COURSE: Ms. Ahn is a 44-year-old white female, who is probably five weeks postop from a robotic hysterectomy, anterior and posterior repair with Advantage Fit TVT. She was doing well until she had onset of bleeding approximately 4 weeks postop. She was initially repaired for this on April 12. When I took her to the operating room, I found a vaginal bleeder site at the left vaginal cuff. [id number] stitches had been placed with cessation of the bleeding along with oversewing the vaginal cuff. She was observed in the hospital overnight and had no further bleeding, she was discharged home to light activity. She was doing well until started having some spontaneous painless vaginal bleeding early yesterday morning. It was not as heavy as it was initially when I evaluated her in the office and she had a small clot in the upper vaginal vault on the left side. That was removed and no active bleeding was seen. Monsel's was placed and then, I observed during my office for another hour and reassessed her with no further bleeding and Monsel's was again placed. She went home, was resting and then, started having bleeding again yesterday evening. She was then brought to the ER and evaluated by Dr. Clay, the OB hospitalist, who evacuated approximately 25 mL clot from her vaginal vault. Hematocrit was 34%. He placed a TXA, a 4x4 with a Kerlix vaginally, which seem to improve the bleeding and hemostasis. Her vital signs have remained stable all during this time. Due to the complex nature and recurrence of the vaginal bleeding and rarity of what was going on, I did a phone consult with Dr. Roxanna Zazueta, [facility] in the [facility]. She felt that she may have a small vaginal artery bleeder that keeps coming in and out of the suture line and that she had some experience with this. She recommended another CT with IV contrast. This was performed and there was no evidence of a pelvic hematoma or extravasation of blood within the pelvis. She had a right complex adnexal cyst, the ovarian cyst that was seen previously, and no abnormal fluid collections in the pelvis. The ureters were appeared intact on a short film shoot. She has been observed overnight. She has had a QBL of approximately 28 mL. Her vital signs are stable with a blood pressure of 102/61, pulse is 79, afebrile 97.9, and respirations 16. She voided 1025 mL overnight. She has no orthostatic symptoms. She has had scant to minimal bleeding overnight. Plan is to discharge from the hospital with packing in place. She will be getting directly to drive by private car to Dr. Zazueta's office. She will remain n.p.o. Dr. Zazueta will assess her and then plan most likely for surgical intervention with her expertise in this matter or possible radiologic interventional artery therapy if it could be remedy in that nature. She will be discharged as soon as possible this morning for further therapy at the [facility] with Dr. Zazueta. Job ID: [id number]
== END 2019-04-18 08:26 | disposition home or self-care (01) ==
LOC: ERS 19:32 → 3SE 20:15
PROVIDERS: ADMIT Obstetrics & Gynecology; ATTEND Obstetrics & Gynecology
DX: N99.820 Postprocedural hemorrhage of a genitourinary system organ or structure following a genitourinary system procedure (principal); G47.00 Insomnia, unspecified; Z79.899 Other long term (current) drug therapy; Z88.8 Allergy status to other drugs, medicaments and biological substances; Z90.710 Acquired absence of both cervix and uterus
CPT/HCPCS: 36415; 72193; 85025; 86850; 86900; 86901; 96361; 96374; G0378; Q9966; S0028